=== PATIENT | male | born 1980 | race American Indian/Alaskan Native ===

== ENCOUNTER 2017-08-11 00:49 | Emergency (ER) | payer MEDICARE, OTHER ==
[2017-08-11 00:57] VITALS: BP 125/84; PULSE 86; RESP 16; TEMP 98.3; O2SAT 99
--- NOTE | 2017-08-11 01:12 | C.PDOC ---
History Of Present Illness 36 year old male presents to the ED with complaints of "itchy bug bites" to right and left upper arm noticed earlier today. Patient denies fever, lip, or throat swelling. Time Seen by Provider: 08/11/17 01:04 Chief Complaint (Nursing): Abnormal Skin Integrity History Per: Patient History/Exam Limitations: no limitations Onset/Duration Of Symptoms: Hrs Current Symptoms Are (Timing): Still Present Location Of Injury: Right: Arm (upper arm ), Left: Arm Quality Of Symptoms: Itching. denies: Draining Recent travel outside of the [place]: No Past Medical History Reviewed: Historical Data, Nursing Documentation, Vital Signs Vital Signs: Last Vital Signs Temp 98.3 F 08/11/17 00:54 Pulse 86 08/11/17 00:54 Resp 16 08/11/17 00:54 BP 125/84 08/11/17 00:54 Pulse Ox 99 08/11/17 04:47 - Medical History PMH: Crohn's Disease, Depression, Post Traumatic Stress Disorder, Schizophrenia Family History: States: Unknown Family Hx - Social History Hx Alcohol Use: No Hx Substance Use: No - Immunization History Hx Tetanus Toxoid Vaccination: Yes Hx Influenza Vaccination: Yes Hx Pneumococcal Vaccination: No Review Of Systems Constitutional: Negative for: Fever, Chills Skin: Positive for: Other (bug bites ) Physical Exam - Physical Exam Appears: Non-toxic, No Acute Distress Skin: Warm, Dry, Other (area of induration, erythema, and warmth on the lateral right upper arm consistent with insect bite. Area of erythema below the scaupla of the left side consistent with insect bite. ) Head: Atraumatic, Normacephalic Eye(s): bilateral: Normal Inspection, PERRL, EOMI Ear(s): Bilateral: Normal Nose: Normal, No Discharge Oral Mucosa: Moist Lips: Normal Appearing, No Swelling Throat: Normal, No Erythema, No Exudate Chest: Symmetrical, No Deformity Cardiovascular: Rhythm Regular, No Murmur Respiratory: Normal Breath Sounds, No Rales, No Rhonchi, No Wheezing Extremity: Normal ROM, No Tenderness, Capillary Refill (good capillary refill, less than two seconds ), No Swelling Neurological/Psych: Oriented x3 ED Course And Treatment O2 Sat by Pulse Oximetry: 99 (RA) Progress Note: Patient was given Keflex. Disposition - Disposition Referrals: [facility] [Outside] Disposition: HOME/ ROUTINE Disposition Time: 01:13 Condition: STABLE Additional Instructions: Follow up with PMD/clinic within 1-2 days. return to ED if feel worse. Prescriptions: Mupirocin 2% Ointment [Bactroban Ointment] 1 appl TP BID #1 tube Cephalexin [cephalexin] 500 mg PO Q6 #28 cap Instructions: Insect Bite or Sting (ED) Forms: [employer] (Thai) - Clinical Impression Clinical Impression: Insect bite, infected - PA / [employer] / Resident Statement MD/DO has reviewed & agrees with the documentation as recorded. - Scribe Statement The provider has reviewed the documentation as recorded by the Scribe Dana Freitas All medical record entries made by the Sidneyibe were at my direction and personally dictated by me. I have reviewed the chart and agree that the record accurately reflects my personal performance of the history, physical exam, medical decision making, and the department course for this patient. I have also personally directed, reviewed, and agree with the discharge instructions and disposition.
== END 2017-08-11 01:43 | disposition home or self-care (01) ==
LOC: C.ER 00:49
DX: S40.862A Insect bite (nonvenomous) of left upper arm, initial encounter (principal); S40.861A Insect bite (nonvenomous) of right upper arm, initial encounter; W57.XXXA Bitten or stung by nonvenomous insect and other nonvenomous arthropods, initial encounter; Y93.9 Activity, unspecified; Y92.9 Unspecified place or not applicable